=== PATIENT | male | born 1995 ===

== ENCOUNTER 2021-01-10 07:29 | Emergency (ER) | payer OTHER ==
[2021-01-10] MEDS ORDERED: FIORICET1 EACH PO (21:19)
[2021-01-10] MEDS ORDERED: ZOFRAN4 M1 PO (21:19)
== END 2021-01-10 09:47 | disposition home or self-care (01) ==
LOC: FER 07:29
DX: S01.81XA Laceration without foreign body of other part of head, initial encounter (principal); W22.8XXA Striking against or struck by other objects, initial encounter; Y92.69 Other specified industrial and construction area as the place of occurrence of the external cause; Y99.0 Civilian activity done for income or pay
CPT/HCPCS: 70450; 72040; J1100; J1200; J1885; J2405

== ENCOUNTER 2021-01-10 19:18 | Emergency (ER) | payer OTHER ==
[2021-01-10] MEDS ORDERED: ZOFRAN4 M1 PO (21:19)
[2021-01-10] MEDS ORDERED: FIORICET1 EACH PO (21:19)
== END 2021-01-10 22:09 | disposition home or self-care (01) ==
LOC: FER 19:18
DX: S06.0X0A Concussion without loss of consciousness, initial encounter (principal); S01.81XA Laceration without foreign body of other part of head, initial encounter; G43.909 Migraine, unspecified, not intractable, without status migrainosus; X58.XXXA Exposure to other specified factors, initial encounter; Y92.89 Other specified places as the place of occurrence of the external cause; Y99.0 Civilian activity done for income or pay
CPT/HCPCS: J1100; J1200; J1885; J2405